=== PATIENT | female | born 1995 | race Caucasian/White ===

== ENCOUNTER → 2016-03-29 | Outpatient (CLI) | payer OTHER ==
[2016-03-29 14:49] LABS: BASO % 0.3 % (0.0-1.0); EOS # 0.1 K/mm3 (0.0-0.50); LARGE UNSTAINED CELL # 0.1 K/mm3 (0.0-0.4); LARGE UNSTAINED CELL % 0.7 % (0.0-4.0); LYMPH # 1.1 K/mm3 (1.5-6.5); LYMPH % 9.1 % (24.0-44.0); MEAN CORPUSCULAR HGB CONC 33.2 g/dl (32.0-36.5); MEAN CORPUSCULAR VOLUME 84.2 fl (80.0-96.0); MONO # 0.6 K/mm3 (0.0-0.8); MONO % 5.2 % (0.0-5.0); NEUTROPHILS # 9.3 K/mm3 (1.8-7.7); NEUTROPHILS % 83.8 % (36.0-66.0); PLATELET COUNT, AUTOMATED 219 k/mm3 (150-450); WHITE BLOOD COUNT 11.1 K/mm3 (4.0-10.0)
== END ==
LOC: M LAB 13:21
PROVIDERS: ATTEND Advanced Practice Midwife
DX: Z34.83 Encounter for supervision of other normal pregnancy, third trimester (principal)

== ENCOUNTER 2016-06-10 19:50 | Inpatient (IN) | payer OTHER ==
[~2016-06-10] VITALS: Ht 160 cm; Wt 84.0 kg
[2016-06-10] MEDS ORDERED: PRENTAB55 PO (19:55)
[2016-06-10 20:48] LABS: MEAN CORPUSCULAR HEMOGLOBIN 24.7 pg (27.0-33.0); MEAN CORPUSCULAR HGB CONC 32.6 g/dl (32.0-36.5); MEAN CORPUSCULAR VOLUME 75.9 fl (80.0-96.0); RED CELL DISTRIBUTION WIDTH 14.6 % (11.5-14.5); WHITE BLOOD COUNT 10.2 K/mm3 (4.0-10.0)
[2016-06-10 21:07] LABS: ALT/SGPT 11 U/L (12-78); AST/SGOT 11 U/L (15-37); BILIRUBIN,TOTAL 0.2 MG/DL (0.2-1.0); CREATININE FOR GFR 0.68 MG/DL (0.55-1.02); URIC ACID 6.2 MG/DL (2.6-6.0)
[2016-06-10] MEDS ORDERED: LABETALOL HCL 100 MG/20 ML VIAL IV ONE (21:15)
[2016-06-10] MEDS ORDERED: miSOPROStol 50 MCG 1/2 TAB (S0191) PO SCH (21:15)
--- NOTE | 2016-06-11 01:49 | HPE ---
DATE OF ADMISSION: 06/10/2016 REASON FOR ADMISSION: Preeclampsia. HISTORY OF PRESENT ILLNESS: This patient is a 20-year-old 1, para 0, who presents at 38 weeks 3 days estimated gestational age by last menstrual period confirmed by a first trimester ultrasound with complaints of elevated blood pressures at home, increased swelling and not feeling well. This is a patient who initiated care at [facility], had appropriate followup and transferred care at 28 weeks to a practice in [place]. She reports that on 05/16 that she actually was diagnosed with gestational hypertension. She was evaluated at [facility], had negative labs, but had elevated blood pressures and was discharged home when normotensive. On day of presentation, she reports not feeling well. She states that she has felt clammy with some difficulty breathing. She reports occasional headaches, but nothing that persists. Denies any visual change. She does report right upper quadrant discomfort that started late yesterday. She also denies vaginal bleeding, leakage of fluid or decreased movement. PAST MEDICAL HISTORY: None. PAST SURGICAL HISTORY: None. PAST OBSTETRICAL HISTORY: 1, para 0. MEDICATIONS: Include vitamins. ALLERGIES: She has no known drug allergies. SOCIAL HISTORY: She denies any alcohol, tobacco, or drug use during her . PHYSICAL EXAMINATION: VITAL SIGNS: Blood pressure 171/107, repeat 171/105, third blood pressure 193/112. She is afebrile. She has a category 1 heart rate tracing with some irregular contractions on tachometer. GENERAL APPEARANCE: Well appearing, no acute distress. LUNGS: Clear to auscultation bilaterally. ABDOMEN: Gravid. Estimated weight (EFW) 3400 grams. Some mild tenderness in the right upper quadrant. CERVICAL EXAM: Her cervix is fingertip dilation, 25% effaced, -3 station. LABORATORIES: Her blood type is B negative. Antibody screen is negative. Rubella is immune. RPR is nonreactive. Hepatitis surface antigen is negative. HIV is negative. Hepatitis C is nonreactive. She had a positive chlamydia, negative test of cure. She had a normal 1-hour Glucola. She is group B Streptococcus (GBS) negative. Her labs on the date of presentation, white count is 10, hemoglobin 10.7, hematocrit 32.8, platelets are 202. Chemistry is currently pending, as well as urine protein, creatinine. ASSESSMENT: 1. This patient is a 20-year-old 1 at 38 weeks 3 days estimated gestational age with preeclampsia showing severe features with severely elevated blood pressures. 2. Reassuring status. PLAN: 1. Admit to labor and delivery. CBC, RPR, type and screen. Preeclamptic panel. Protein/creatinine ratio. 2. Patient has been thoroughly counseled in regards to her diagnosis. I have discussed management options with her. I discussed antihypertensive therapy for blood pressure sustained at greater than 160 or diastolics of 110. I also discussed neural prophylaxis with magnesium sulfate. We discussed induction of labor with the above indication. I discussed medications, as well as procedures performed in labor and delivery. She has also been verbally consented for emergency surgery, blood products, anesthesia and has consented to admission. Will initiate her induction with 50 mcg of misoprostol.
--- NOTE | 2016-07-03 14:08 | DSES ---
DATE OF ADMISSION: 06/10/2016 DATE OF DISCHARGE: The patient was never discharged, she left against medical advice. ADMISSION DIAGNOSIS: Preeclampsia. HISTORY AND HOSPITALIZATION COURSE: This patient is a 20-year-old, 1, para 0 who presented at 38 weeks 2 days estimated gestational age by last menstrual period and confirmed by first trimester ultrasound with complaints of elevated blood pressure at home, as well as increased swelling and overall not feeling well. The patient initiated her care at [facility]. She had appropriate followup and transferred her care at 28 weeks to a practice in [place]. She reports that on 05/16/2016 that she was diagnosed with gestational hypertension. She was evaluated at [facility] and had negative laboratories, but her blood pressure remained elevated and she was discharged home eventually normotensive with plans for induction of labor. On the day of presentation, she reports not feeling well. She states that she was feeling clammy with some difficulty breathing, and she reports occasional headaches, but nothing that persists. Denied any visual changes. PHYSICAL EXAMINATION: Her blood pressure was markedly elevated at 170s over 100. Neurologically, she seems grossly intact. Cervix at this time was fingertip dilation, 25% effaced, -2 station. She was initially counseled in regard to her diagnosis with preeclampsia with severe features with elevated blood pressures. She initially accepted induction of labor, which was initially initiated with 50 mcg of misoprostol. Approximately two hours after initiation of induction of labor, the patient declined any further intervention. She was recounseled in regard to her diagnosis with my recommendations for induction of labor, but at that time declined any further intervention and signed herself out against medical advice.
== END 2016-06-10 23:58 | disposition home or self-care (01) | DRG 566 ==
LOC: M LDO 19:50 → M LDI 20:42
PROVIDERS: ADMIT Obstetrics & Gynecology; ATTEND Obstetrics & Gynecology
DX: O14.13 Severe pre-eclampsia, third trimester (principal)

== ENCOUNTER 2016-06-11 16:31 | Outpatient (CLI) | payer OTHER ==
[~2016-06-11] VITALS: Ht 160 cm; Wt 82.0 kg
[2016-06-11] VITALS (14 sets, daily range): BP systolic 122–158; BP diastolic 70–109
[~2016-06-11 16:31] MED LIST: PRENTAB55 PO
[2016-06-11 17:36] LABS: METHADONE URINE NEGATIVE (NEGATIVE)
--- NOTE | 2016-06-12 00:29 | IPN ---
DATE OF SERVICE: 06/11/2016 REASON FOR VISIT: Patient desired induction of labor. HISTORY OF PRESENT ILLNESS: This patient is a 20-year-old 1 who presents at 38 weeks desiring induction of labor. This is a patient who has been followed in [place] with a provider who works out of [facility]. She initially presented yesterday to labor and delivery at [facility] at which time she was noted to have severe raised blood pressures. Recommendation was made to manage her hypertension with discussion for induction of labor. The patient initially accepted admission with plan of care and 2 hours into her management she signed herself out AGAINST MEDICAL ADVICE. She then presented to [facility] at which time her provider discussed their recommendations for induction of labor for gestational hypertension/preeclampsia at which time she signed herself out again AGAINST MEDICAL ADVICE and has now presented to labor and delivery requesting induction of labor. Currently, the patient denies any visual changes, abdominal pain, or headaches. She reports active movement. Also denies any vaginal bleeding, leakage of fluid or contractions. This patient was monitored for several hours and was normotensive with rare elevated blood pressures. She had a category 1 heart rate tracing throughout this observation and remained stable. Patient was then discharged home with instructions to followup with her primary staff nuclear medicine technologist and recommend following their plan of care at this time. She was given strict precautions for preeclampsia, as well as labor. She was also instructed in kick counts. JOANNE
== END 2016-06-11 21:10 | disposition home or self-care (01) ==
LOC: M LDO 16:31
PROVIDERS: ATTEND Obstetrics & Gynecology
DX: Z34.83 Encounter for supervision of other normal pregnancy, third trimester (principal)

== ENCOUNTER 2017-03-26 19:20 | Emergency (ER) | payer OTHER ==
[2017-03-26 21:31] LABS: BASO % 0.3 % (0.0-1.0); EOS # 0.1 10^3/uL (0.0-0.50); HEMATOCRIT 43.7 % (36.0-47.0); HEMOGLOBIN 14.3 g/dl (12.0-16.0); IMMATURE GRANULOCYTE % 0.2 % (0-3.0); LYMPH # 1.4 10^3/uL (1.5-6.5); LYMPH % 15.7 % (24.0-44.0); MEAN CORPUSCULAR HGB CONC 32.7 g/dl (32.0-36.5); MEAN CORPUSCULAR VOLUME 76.4 fl (80.0-96.0); MONO # 0.5 10^3/uL (0.0-0.8); MONO % 5.9 % (0.0-5.0); NEUTROPHILS # 6.7 10^3/uL (1.8-7.7); NEUTROPHILS % 76.9 % (36.0-66.0); PLATELET COUNT, AUTOMATED 260 10^3/uL (150-450); RED BLOOD COUNT 5.72 10^6/uL (4.00-5.40); RED CELL DISTRIBUTION WIDTH 13.2 % (11.5-14.5); WHITE BLOOD COUNT 8.8 10^3/uL (4.0-10.0)
[2017-03-26 22:00] LABS: ANION GAP 7 MEQ/L (8-16); BLOOD UREA NITROGEN 14 MG/DL (7-18); CALCIUM LEVEL 9.3 MG/DL (8.5-10.1); CARBON DIOXIDE LEVEL 29 MEQ/L (21-32); CHLORIDE LEVEL 105 MEQ/L (98-107); CPK CREATINE PHOSPHOKINASE 154 U/L (26-192); CREATININE FOR GFR 0.74 MG/DL (0.55-1.30); GLOMERULAR FILTRATION RATE > 60.0 (>60); GLUCOSE, FASTING 93 MG/DL (70-100); MAGNESIUM LEVEL 2.3 MG/DL (1.8-2.4); SODIUM LEVEL 141 MEQ/L (136-145); TROPONIN I < 0.02 NG/ML (< 0.10)
[2017-03-26 22:05] LABS: CK-MB VALUE MASS 1.4 NG/ML (0.0-3.6)
[2017-03-26 22:10] LABS: D-DIMER QUANT < 270.0 ng/ml (<500)
== END 2017-03-26 22:42 | disposition home or self-care (01) ==
LOC: M ED 19:20
DX: R07.89 Other chest pain (principal); R00.2 Palpitations; R06.02 Shortness of breath; R11.0 Nausea; E03.9 Hypothyroidism, unspecified; F41.9 Anxiety disorder, unspecified
CPT/HCPCS: 71046

== ENCOUNTER 2018-08-12 10:20 | Emergency (ER) | payer OTHER, SELFPAY ==
[~2018-08-12] VITALS: Ht 157.5 cm; Wt 61.3 kg
[~2018-08-12 10:20] MED LIST changes: +SYNT88TA2 PO
[2018-08-12 10:21] VITALS: BP 153/95
[2018-08-12 11:03] LABS: BASO % 0.3 % (0.0-1.0); EOS % 0.6 % (0.0-3.0); HEMATOCRIT 43.4 % (36.0-47.0); HEMOGLOBIN 14.6 g/dl (12.0-15.5); LYMPH # 0.7 10^3/uL (1.5-6.5); LYMPH % 21.3 % (24.0-44.0); MEAN CORPUSCULAR HEMOGLOBIN 27.7 pg (27.0-33.0); MEAN CORPUSCULAR HGB CONC 33.6 g/dl (32.0-36.5); MEAN CORPUSCULAR VOLUME 82.2 fl (80.0-96.0); MONO # 0.4 10^3/uL (0.0-0.8); MONO % 12.3 % (0.0-5.0); NEUTROPHILS # 2.2 10^3/uL (1.8-7.7); NEUTROPHILS % 65.2 % (36.0-66.0); PLATELET COUNT, AUTOMATED 149 10^3/uL (150-450); RED BLOOD COUNT 5.28 10^6/uL (4.00-5.40); WHITE BLOOD COUNT 3.3 10^3/uL (4.0-10.0)
[2018-08-12 11:39] LABS: ALBUMIN 3.6 GM/DL (3.2-5.2); ALT/SGPT 15 U/L (12-78); BILIRUBIN,DIRECT 0.2 MG/DL (0.0-0.2); BILIRUBIN,TOTAL 0.6 MG/DL (0.2-1.0); BLOOD UREA NITROGEN 10 MG/DL (7-18); CARBON DIOXIDE LEVEL 29 MEQ/L (21-32); CHLORIDE LEVEL 103 MEQ/L (98-107); CREATININE FOR GFR 0.75 MG/DL (0.55-1.30); GLOMERULAR FILTRATION RATE > 60.0 (>60); GLUCOSE, FASTING 89 MG/DL (70-100); LIPASE 104 U/L (73-393); POTASSIUM SERUM 3.8 MEQ/L (3.5-5.1); SODIUM LEVEL 137 MEQ/L (136-145); TOTAL PROTEIN 7.3 GM/DL (6.4-8.2)
[2018-08-12 12:45] LABS: CHLAMYDIA DNA AMPLIFICATION NEGATIVE (NEGATIVE); GC DNA AMPLIFICATION NEGATIVE (NEGATIVE)
--- NOTE | 2018-08-12 13:25 | REP ---
PELVIC ULTRASOUND: Real-time sonographic evaluation of the pelvis is performed utilizing transabdominal and endovaginal technique. Bladder measures 3.3 x 1.3 x 4.1 cm. Uterus measures 8.4 x 3.9 x 6.3 cm. Endometrial thickness is 11 mm. There is no endometrial fluid collection. Right ovary measures 3.9 x 2.6 x 3.6 cm and left ovary 3.6 x 2.5 x 3.2 cm. A cystic structure along the margin of the right ovary measures 1.8 x 1.5 x 1.9 cm. There is no evidence of ovarian torsion, blood flow seen in each ovary with duplex Doppler evaluation, RI right ovary 0.45 and left ovary 0.55. There is moderate free fluid. IMPRESSION: There is a small cystic structure along the margin of the right ovary 1.9 cm in maximum diameter. No other evidence of adnexal mass. Moderate free fluid. No torsion. Electronically Signed by Gutierrez Campos MD 08/13/2018 09:56 A
[2018-08-12] MEDS ORDERED: VALA1TAB2 PO (13:30)
[2018-08-12] MEDS ORDERED: CIPR-249 PO (13:30)
[2018-08-12 13:44] LABS: HEPATITIS B SURFACE ANTIBODY POSITIVE (POSITIVE)
[2018-08-12 13:55] LABS: HEPATITIS B SURFACE ANTIGEN NEGATIVE (NEGATIVE)
[2018-08-12 14:23] LABS: HEPATITIS C VIRUS ABY INDEX 0.1 INDEX (<0.8)
[2018-08-12 14:24] LABS: HIV 1&2 SCREEN CENTAUR NEGATIVE (NEGATIVE)
[2018-08-14] MEDS ORDERED: KETO10TAB PO (01:29)
[2018-08-14] MEDS ORDERED: KEFL500C17 PO (01:29)
== END 2018-08-12 13:50 | disposition home or self-care (01) ==
LOC: M ED 11:38
DX: N90.89 Other specified noninflammatory disorders of vulva and perineum (principal); N39.0 Urinary tract infection, site not specified; E03.9 Hypothyroidism, unspecified; F41.9 Anxiety disorder, unspecified; Z77.098 Contact with and (suspected) exposure to other hazardous, chiefly nonmedicinal, chemicals; Z79.899 Other long term (current) drug therapy

== ENCOUNTER → 2019-01-31 | Outpatient (CLI) | payer OTHER ==
[~2019-01-31] MED LIST changes: +CIPR-249 PO; +KEFL500C17 PO; +KETO10TAB PO; +VALA1TAB64 PO
[2019-01-31 13:37] LABS: BASO % 0.4 % (0.0-1.0); EOS # 0.1 10^3/uL (0.0-0.5); EOS % 0.8 % (0.0-3.0); HEMATOCRIT 41.9 % (36.0-47.0); HEMOGLOBIN 13.8 g/dl (12.0-15.5); LYMPH # 1.2 10^3/uL (1.5-5.0); LYMPH % 16.9 % (24.0-44.0); MEAN CORPUSCULAR HEMOGLOBIN 27.5 pg (27.0-33.0); MEAN CORPUSCULAR HGB CONC 32.9 g/dl (32.0-36.5); MEAN CORPUSCULAR VOLUME 83.6 fl (80.0-96.0); MONO # 0.4 10^3/uL (0.0-0.8); MONO % 5.6 % (0.0-5.0); NEUTROPHILS # 5.6 10^3/uL (1.5-8.5); NEUTROPHILS % 75.9 % (36.0-66.0); PLATELET COUNT, AUTOMATED 211 10^3/uL (150-450); RED BLOOD COUNT 5.01 10^6/uL (4.00-5.40); WHITE BLOOD COUNT 7.3 10^3/uL (4.0-10.0)
[2019-01-31 13:55] LABS: CREATININE,RANDOM URINE 95.6 MG/DL; TOTAL PROTEIN,RANDOM URINE 7.9 MG/DL (0.0-12.0)
[2019-01-31 13:59] LABS: ALT/SGPT 12 U/L (12-78); BILIRUBIN,TOTAL 0.6 MG/DL (0.2-1.0); CREATININE FOR GFR 0.64 MG/DL (0.55-1.30); GLOMERULAR FILTRATION RATE > 60.0 (>60); LDH LACTATE DEHYDROGENASE 146 U/L (84-246); URIC ACID 5.2 MG/DL (2.6-6.0)
[2019-01-31 14:19] LABS: RUBELLA IgG QUALITATIVE IMMUNE (IMMUNE)
[2019-01-31 14:48] LABS: HEPATITIS C VIRUS ABY INDEX 0.2 INDEX (<0.8)
[2019-01-31 14:49] LABS: HIV 1&2 SCREEN CENTAUR NEGATIVE (NEGATIVE)
[2019-01-31 15:08] LABS: CHLAMYDIA DNA AMPLIFICATION NEGATIVE (NEGATIVE); GC DNA AMPLIFICATION NEGATIVE (NEGATIVE)
== END ==
LOC: M PLALAB 10:31
PROVIDERS: ATTEND Advanced Practice Midwife
DX: Z34.91 Encounter for supervision of normal pregnancy, unspecified, first trimester (principal)

== ENCOUNTER → 2019-03-26 | Outpatient (CLI) | payer MEDICAID, OTHER, SELFPAY ==
[~2019-03-26] MED LIST changes: +VALA1TAB5 PO; -VALA1TAB64 PO
--- NOTE | 2019-03-26 15:35 | REP ---
Obstetric sonography: History: Supervision of . For anatomy. Findings: Scanning through the gravid uterus demonstrates a viable single intrauterine gestation in a cephalic lie. motion is observed and heart rate is recorded at 114 beats per minute. An anterior grade 1 placenta is seen without evidence of previa or abruption. Amniotic fluid is subjectively normal. Closed cervical length is 3.1 cm. No anomaly is seen. The following anatomic structures are identified and felt to be sonographically unremarkable: cranium, choroid plexus, cavum, cerebellum and posterior fossa, nuchal fold, face and profile, four-chamber heart with left and right ventricular outflow tract views, diaphragm, left-sided stomach, abdominal wall cord insertion, three-vessel cord, kidneys and bladder, spine, upper and lower extremities. Biometry chart: BPD 4.1 cm = 18 weeks 3 days HC 15.4 cm = 18 weeks 3 days AC 12.6 cm = 18 weeks 1 day FL 2.6 cm = 17 weeks 6 days HL 2.8 cm = 19 weeks 0 days HC/AC ratio normal 1.22. Cephalic index normal 0.73. Estimated weight 224 grams, 0 pounds 7 ounces, 46th percentile for 18 weeks 1 day. Impression: Viable single intrauterine gestation at 18 weeks 1 day by today's composite sonographic criteria. JOCELYN by today's sonography August 26, 2019.
== END ==
LOC: M WHC 13:37
PROVIDERS: ATTEND Advanced Practice Midwife
DX: Z34.82 Encounter for supervision of other normal pregnancy, second trimester (principal); Z36.89 Encounter for other specified antenatal screening; Z3A.18 18 weeks gestation of pregnancy

== ENCOUNTER → 2019-05-30 | Outpatient (REF) | payer OTHER, MEDICAID ==
[2019-05-30 13:40] LABS: HEMATOCRIT 37.9 % (36.0-47.0); HEMOGLOBIN 12.8 g/dl (12.0-15.5); MEAN CORPUSCULAR HEMOGLOBIN 28.6 pg (27.0-33.0); MEAN CORPUSCULAR HGB CONC 33.8 g/dl (32.0-36.5); MEAN CORPUSCULAR VOLUME 84.6 fl (80.0-96.0); PLATELET COUNT, AUTOMATED 207 10^3/uL (150-450); RED BLOOD COUNT 4.48 10^6/uL (4.00-5.40); WHITE BLOOD COUNT 10.7 10^3/uL (4.0-10.0)
== END ==
LOC: M PLALAB 11:08
PROVIDERS: ATTEND Advanced Practice Midwife
DX: Z36.89 Encounter for other specified antenatal screening (principal); O09.292 Supervision of pregnancy with other poor reproductive or obstetric history, second trimester; Z3A.00 Weeks of gestation of pregnancy not specified
CPT/HCPCS: 36415; 82950; 85027; 86850; 86900; 86901; J2790

== ENCOUNTER → 2019-07-11 | Outpatient (CLI) | payer OTHER ==
--- NOTE | 2019-07-11 17:11 | REP ---
Clinical: Growth evaluation. Comparison: 03/26/2019 . Findings: Examination demonstrates a single live intrauterine in breech presentation. motion is identified by technologist. Placenta is noted anterior and grade I I without evidence for placenta previa or abruption. Amniotic fluid volume is normal. Cervix measures 3.6 cm in length and appears closed. No evidence for nuchal cord. Gestational age by LMP 33 weeks 3 days with JOCELYN 08/26/2019 . Gestational age by current measurements 33 weeks 5 days with JOCELYN 08/24/2019 . FHR equals 142 beats per minute. BPD 8.5 cm 34 weeks 2 days HC 32.1 cm 36 weeks 1 day AC 30.6 cm 34 weeks 4 days FL 6.3 cm 32 weeks 3 days HL 5.4 cm 31 weeks 4 days HC/AC ratio 1.05 Estimated weight 2357 grams ( 59th percentile). Amniotic fluid index: 21.7 cm Impression: Single live intrauterine in breech presentation demonstrating appropriate interval growth. No gross abnormalities are identified.
== END ==
LOC: M WHC 13:02
PROVIDERS: ATTEND Advanced Practice Midwife
DX: Z34.92 Encounter for supervision of normal pregnancy, unspecified, second trimester (principal)

== ENCOUNTER → 2019-07-25 | Outpatient (REF) | payer OTHER, MEDICAID ==
[~2019-07-25] MED LIST changes: +ASPI81TA85 PO; +PRENTAB9 PO; +TUMS500C PO
== END ==
LOC: M SFHCWAGY 16:44
PROVIDERS: ATTEND Advanced Practice Midwife
DX: O13.3 Gestational [pregnancy-induced] hypertension without significant proteinuria, third trimester (principal)

== ENCOUNTER → 2019-08-01 | Outpatient (CLI) | payer OTHER ==
--- NOTE | 2019-08-01 17:22 | REP ---
OBSTETRIC SONOGRAPHY: HISTORY: Supervision of . growth study for GAYATHRI. Gestational diabetes. FINDINGS: Scanning through the gravid uterus demonstrates a single living intrauterine gestation in a cephalic lie. motion is observed, and heart rate is recorded at 135 beats per minute. The placenta is anterior, grade 2 without evidence of previa or abruption. Amniotic fluid is subjectively normal. Closed cervical length is 3.1 cm measured transabdominally. No extrauterine abnormalities observed. There has been appropriate interval growth. BIOMETRY CHART: BPD 9.1 cm = 36 weeks 5 days Head circumference 33.7 cm = 38 weeks 4 days Abdominal circumference 34.3 cm = 38 weeks 1 day Femur length 7.0 cm = 35 weeks 5 days Humeral length 6.0 cm = 34 weeks 5 days HC/AC ratio normal 1.0, cephalic index normal 0.75, estimated weight 3214 grams, 7 pounds 1 ounce, 66 percentile for 36 weeks 5 days. GAYATHRI normal 20.0 cm. IMPRESSION: Viable single intrauterine gestation at 36 weeks 5 days by today's composite criteria. Expected gestational age estimate based on prior sonography is 36 weeks 3 days. JOCELYN by prior sonography August 26, 2019. There is appropriate interval growth.
== END ==
LOC: M WHC 13:02
PROVIDERS: ATTEND Advanced Practice Midwife
DX: O13.3 Gestational [pregnancy-induced] hypertension without significant proteinuria, third trimester (principal); Z3A.36 36 weeks gestation of pregnancy

== ENCOUNTER 2019-08-04 09:46 | Inpatient (IN) | payer OTHER ==
[~2019-08-04] VITALS: Ht 157.5 cm; Wt 89.0 kg
[2019-08-04] VITALS (15 sets, daily range): BP systolic 110–141; BP diastolic 66–86
[~2019-08-04 09:46] MED LIST changes: -ASPI81TA85 PO; -PRENTAB9 PO; -TUMS500C PO
[2019-08-04] MEDS ORDERED: PRENTAB9 PO (10:22)
[2019-08-04] MEDS ORDERED: ASPI81TA85 PO (10:22)
[2019-08-04] MEDS ORDERED: TUMS500C PO (10:23)
[2019-08-04] MEDS ORDERED: LACTATED RINGER'S 1000 ML IV STA (11:03)
--- NOTE | 2019-08-04 12:13 | HPEPDOC ---
Obstetrical History & Physical General Date of Admission Aug 04, 2019 at 09:46 Primary Care Physician: HUY MCCARTNEY CNM History of Present Illness Patient is a 23-year-old female who is a at 37 week gestation with an JOCELYN of 08/24/19 based off of her LMP and consistent with her first trimester ultrasound. her has been complicated by GHTN, which she was diagnosed with at 32 weeks. She has a history of preeclampsia with severe features. She currently denies any preeclamptic signs or symptoms. Reports active movement and occasional contractions. Denies vaginal bleeding or leaking of fluid. Chief Complaint: Gestational Hypertension Information Provided By: Patient Age: 23 : 2 Term: 1 Pre-term: 0 Abortions: 0 Livin Care Care: Good Care Dating Final EDC: Aug 24, 2019 Final EDC by: LMP LMP: Nov 17, 2018 EGA at Admission: 37 Antepartum Course Diagnos(e)s GHTN Height (inches): 23 Pre- weight (lbs.): 154 Admission Weight (lbs.): 191 Change in Weight (lbs.): 37 Past Medical History Past Obstetrical History : Past Obstetrical History: Primgravida Date of Delivery: June 15, 2016 Gestation: 39 Type of Delivery: Spontaneous Vaginal Del. Sex of : Female Complications: Yes (preeclampsia with severe features: vacuum assisted with episiotomy) [employer] History: History of STD (chlamydia) Past Medical History Surgical History: Denies/None Family History Significant Family History: Diabetes, Other (RA) Social History Marital Status: Single Family situation: Spouse/partner home Psychosocial History: Anxiety * Smoker: non-smoker Alcohol: Denies Drugs: denies Abuse Violence Screening Have you been sexually assault: No Allergies Coded Allergies: No Known Allergies (Unverified , 08/12/18) Medications Scheduled Aspirin (Aspir 81) 81 Mg Tablet.dr, 1 TAB PO DAILY for pain Calcium Carbonate (Tums) 200 Mg Tab.chew, 2 TAB PO PRN No.137/Iron/Folic Acd ( Vitamin Tablet) 1 Each Tablet, 1 TAB PO DAILY Physical Examination Physical Examination GENERAL: Alert and oriented times three. BREAST: . ABDOMEN: Gravid and non-tender to touch. FETUS: Is vertex (VTX) by sterile vaginal examination (SVE), fetus is vertex (VTX) by Travis. HEART RATE: Regular rate and rhythm. LUNGS: Clear to auscultation (CTA). PERINEUM: inspection of cervix, perineum, and external genitalia show no lesions. EXTREMITIES: Generalized edema bilateral legs and feet. No clonus. Deep tendon reflexes (DTRs) + 2. Vital Signs/I&O Vital Signs Date Time Temp Pulse Resp B/P (MAP) Pulse Ox O2 Delivery O2 Flow Rate FiO2 08/04/19 10:50 96 18 138/84 (102) 08/04/19 10:18 99.7 Laboratory Data 24H LABS Laboratory Tests 2 08/04/19 10:10: Serology Scanned Report Hepatitis B Testing Item Value Date Time Creatinine 0.60 MG/DL 08/04/19 1206 Glomerular Filtration Rate > 60.0 08/04/19 1206 Uric Acid 5.6 MG/DL 08/04/19 1206 Total Bilirubin 0.2 MG/DL 08/04/19 1206 Aspartate Amino Transf (AST/SGOT) 23 U/L 08/04/19 1206 Alanine Aminotransferase (ALT/SGPT) 14 U/L 08/04/19 1206 Lactate Dehydrogenase 280 U/L H 08/04/19 1206 CBC/BMP Item Value Date Time White Blood Count 10.3 10^3/uL H 08/04/19 1206 Red Blood Count 4.73 10^6/uL 08/04/19 1206 Hemoglobin 12.4 g/dl 08/04/19 1206 Hematocrit 38.2 % 08/04/19 1206 Mean Corpuscular Volume 80.8 fl 08/04/19 1206 Mean Corpuscular Hemoglobin 26.2 pg L 08/04/19 1206 Mean Corpuscular Hemoglobin Concent 32.5 g/dl 08/04/19 1206 Red Cell Distribution Width 13.2 % 08/04/19 1206 Platelet Count 207 10^3/uL 08/04/19 1206 Urine Culture: No Growth Pertinent Laboratoy Data Blood Type: B- RBC Antibody Screen: Negative HIV: Negative Hepatitis B: Negative Hepatitis C: Negative Rapid Plasma Reagin: Nonreactive Rubella: Immune Chlamydia/Gonorrhea: Negative Group B Streptococcus: Negative Glucose Tolerance Test: 97 Anatomy Ultrasound Ultrasound Date: Aug 04, 2019 Placenta Location: Anterior Normal Anatomy: Yes (breech with GAYATHRI of 21.7 cm) Placenta Previa: No Estimated Weight (grams): 2351 Other Ultrasounds 07/25/19: Vertex by sono Vaginal Examination Dilation: 1cm Effacement: 50% Station: -3 Cervical Consistency: Soft Cervical Position: Middle Presentation: Cephalic presentation Position: Vertex (occiput) Assessment Heart Rate (FHR): 135 Variability: Moderate Accelerations: Positive Decelerations: None Tocometer Contractions: Yes Frequency: irregular Multi-drug resistant Organism: MRSA (PCR obtained today and is negative.) Assessment/Plan Assessment IUP at 37 weeks gestation GHTN Category I FHR tracing GBS negative Plan Admit to L&D. Dr. Mcrae aware of patient being in department and collaborated on plan of care. OOB ad ivon Diet: regular now then switch to clears when IV Pitocin is ordered. Group B Streptococcus (GBS) negative. Labs and intravenous (IV) per unit protocol. Counseled on Cytotec and Pitocin for induction of labor. Cytotec ordered first and to be started. HSV IgG and IgM ordered due to patient not taking any prophylactic treatment for HSV as patient reports she wasn't aware of having a positive viral culture that was done August 2018 in the ED. Inspection appears negative for vaginal, cervical, perineal lesions. Anesthesia consult per patient's request for epidural. Lactated Ringers (LR): Bolus 500 mL prior to epidural, then at 125 mL/hr. Anticipate cervical ripening. C-S as appropriate. HUY MCCARTNEY CNM Aug 04, 2019 12:13
[2019-08-04] MEDS ORDERED: miSOPROStol 50 MCG 1/2 TAB (S0191) PO ONE (12:15)
[2019-08-04 12:29] LABS: HEMATOCRIT 38.2 % (36.0-47.0); HEMOGLOBIN 12.4 g/dl (12.0-15.5); MEAN CORPUSCULAR HEMOGLOBIN 26.2 pg (27.0-33.0); MEAN CORPUSCULAR HGB CONC 32.5 g/dl (32.0-36.5); MEAN CORPUSCULAR VOLUME 80.8 fl (80.0-96.0); PLATELET COUNT, AUTOMATED 207 10^3/uL (150-450); RED BLOOD COUNT 4.73 10^6/uL (4.00-5.40); WHITE BLOOD COUNT 10.3 10^3/uL (4.0-10.0)
[2019-08-04 12:55] LABS: ALT/SGPT 14 U/L (12-78); BILIRUBIN,TOTAL 0.2 MG/DL (0.2-1.0); GLOMERULAR FILTRATION RATE > 60.0 (>60); LDH LACTATE DEHYDROGENASE 280 U/L (84-246); URIC ACID 5.6 MG/DL (2.6-6.0)
[2019-08-04] MEDS ORDERED: miSOPROStol 50 MCG 1/2 TAB (S0191) PO SCH ×3 (17:00→22:00)
[2019-08-05] VITALS (57 sets, daily range): BP systolic 102–147; BP diastolic 56–86
[2019-08-05] MEDS ORDERED: OXYTOCIN DRIP 30 UNITS in IV 1 EA IV SCH ×2 (00:30→22:14)
[2019-08-05] MEDS: LR 1,000 ML IV SCH ×3 (01:53→19:00)
--- NOTE | 2019-08-05 08:10 | IPNPDOC ---
Obstetrical Progress Note Date of Service Aug 05, 2019 Subjective Patient reports she is feeling some of her contractions. Objective Vital Signs Date Time Temp Pulse Resp B/P (MAP) Pulse Ox O2 Delivery O2 Flow Rate FiO2 08/05/19 07:29 98.3 93 16 117/79 (92) Assessment Heart Rate (FHR): 130 Variability: Moderate Accelerations: Positive Decelerations: None Heart Rate Tracing: Category I Tocometer Contractions: Yes Frequency: regular Sterile Vaginal Examination Dilation: 3 cm Effacement (%): other (75%) Station: -3 Cervical Consistency: Soft Cervical Position: Anterior Postion/Presentation: Cephalic presentation Assessment and Plan EGA at Admission: 37 Weeks & Days 37.1 weeks today Status: Reassuring Group B Streptococcus: Negative Additional Comments AROM to a large amount of clear fluid. IV Pitocin is at 10 mu/min. HUY MCCARTNEY CNM Aug 05, 2019 08:10
[2019-08-05] MEDS ORDERED: FENTANYL 2MCG/ML ROPIVACAINE 0.2% IN 0.9% NACL 100ML IVBAG As Ordered ONE (11:19)
[2019-08-05] MEDS ORDERED: EPIDURAL COMMENT XX SCH (12:15)
[2019-08-05] MEDS ORDERED: ONDANSETRON 4MG/2ML VIAL IV PRN (12:15)
[2019-08-05] MEDS ORDERED: EPIDURAL/PCA KEYS XX PRN (12:15)
[2019-08-05] MEDS ORDERED: ePHEDrine SULFATE 25 MG/5 ML(5MG/ML) SYRINGE IV PRN (12:15)
[2019-08-05] MEDS ORDERED: LACTATED RINGER'S 1000 ML IV PRN (12:15)
[2019-08-05] MEDS ORDERED: diphenhydrAMINE 50MG/ML VIAL (J1200) IV PRN (12:15)
[2019-08-05] MEDS ORDERED: NALOXONE INJ 0.4MG/1ML VIAL (J2310 PER 1MG) IV PRN (12:15)
[2019-08-05] MEDS ORDERED: REFRIGERATOR IV KEYS XX PRN (12:15)
[2019-08-05] MEDS: FENTANYL/ROPIVACAINE/NACL BAG 100 ML EPIDURAL SCH ×2 (12:52→22:15)
--- NOTE | 2019-08-05 20:02 | DNPDOC ---
[facility] Delivery Note Delivery Note DATE OF DELIVERY: 08/05/2019 TIME OF : 1913 GENDER:, Male. APGARS: 8 and 9. WEIGHT: 2900 grams or 6 pounds 6 ounces. LACERATIONS:. None ANESTHESIA: Epidural. ESTIMATED BLOOD LOSS: 300ml COUNTS: 5 laparotomy sponges accounted for prior to after delivery. DELIVERY NOTE: 08/05/2019 1914, Mrs. Scherer a 23-year-old 2 now para 2, had a spontaneous vaginal delivery of viable male , Apgars, 8 and 9. Weight was 2900 g or 6 lbs. 6 oz. Head was delivered occiput anterior (OA). Nuchal cord was manually reduced followed by delivery of the shoulders and corpus. was handed to mom with a good cry. Cord was clamped times two and was cut by the father of baby under my direction. Placenta was then drained and delivered grossly intact. A premixed bag of 500 mL of normal saline with 30 units of Pitocin was then bolused along with uterine massage until the uterus was firm. On inspection, cervix, vagina, perineum was grossly intact and hemostatic. Mom and baby recovering in stable condition. The couples decided to remain in son CHILO Alvarez MD. Aug 05, 2019 20:02
[2019-08-05] MEDS ORDERED: MEASLES,MUMPS,RUBELLA VACCINE INJ (MMR-II) (90707) SC SCH (21:45)
[2019-08-05] MEDS ORDERED: ACETAMINOPHEN TAB 650MG DOSE (2X325MG) PO PRN (21:45)
[2019-08-05] MEDS ORDERED: ACETAMINOPHEN 500 MG TAB PO PRN (21:45)
[2019-08-05] MEDS ORDERED: DOCUSATE SODIUM 100 MG CAP PO PRN (21:45)
[2019-08-05] MEDS ORDERED: METHYLERGONOVINE MALEATE 0.2 MG TAB PO PRN (21:45)
[2019-08-05] MEDS ORDERED: DIBUCAINE 1% OINTMENT 30GM TOP PRN (21:45)
[2019-08-05] MEDS ORDERED: RHOGAM 300 MCG (1500 IU) INJ (J2790) IM SCH (21:45)
[2019-08-05] MEDS ORDERED: IBUPROFEN 600MG TAB PO PRN (21:45)
[2019-08-06] MEDS: LR 1,000 ML IV SCH (00:18)
[2019-08-06 06:00] VITALS: BP 114/62
--- NOTE | 2019-08-06 07:46 | IPNPDOC ---
Progress Note Date of Service: Aug 06, 2019 Day#: 1 Progress Note SUBJECT: Doing well without complaints. Ambulating, voiding and pain is well-co ntrolled. Reports minimal lochia. +breast feeding OBJECTIVE: VITAL SIGNS: Within normal limits, afebrile. Alert and oriented times three. Abdomen: Fundus firm at U-2. Soft, NTTP. Ext: neg calf tenderness. ASSESSMENT: day #1 status post normal spontaneous vaginal delivery. Recovering in stable condition. PLAN: 1. Continue routine care 2. Discharge plans for tomorrow VS, I&O, 24H, Fishbone Vital Signs/I&O Vital Signs Date Time Temp Pulse Resp B/P (MAP) Pulse Ox O2 Delivery O2 Flow Rate FiO2 08/06/19 06:00 97.7 83 18 114/62 (79) I&O- Last 24 Hours up to 6 AM 08/06/19 06:00 Intake Total 5226 ml Output Total 2525 ml Balance 2701 ml CHILO ALCANTAR MD. Aug 06, 2019 07:46
[2019-08-06] MEDS: PRENATAL VITAMINS CHEWABLE TABLET PO SCH (09:13)
[2019-08-06] MEDS: IBUPROFEN 800 MG TAB PO PRN ×2 (10:59→21:46)
[2019-08-06 18:25] VITALS: BP 126/77
[2019-08-07 06:03] VITALS: BP 108/57
[2019-08-07] MEDS: PRENATAL VITAMINS CHEWABLE TABLET PO SCH (08:43)
[2019-08-07 14:08] LABS: HSV TYPE I IgG SPECIFIC <0.91 index (0.00-0.90); HSV TYPE I IgM AB <1:10 titer (<1:10); HSV TYPE II IgM ABY <1:10 titer (<1:10)
== END 2019-08-07 18:32 | disposition home or self-care (01) | DRG 560 ==
LOC: M LDI 09:46 → M OBS 08-05 21:50
PROVIDERS: ADMIT Advanced Practice Midwife; ATTEND Advanced Practice Midwife
PROC: 10E0XZZ Delivery of Products of Conception, External Approach (ICD-10-PCS; principal; 2019-08-05)
DX: O13.4 Gestational [pregnancy-induced] hypertension without significant proteinuria, complicating childbirth (principal); Z37.0 Single live birth; Z3A.37 37 weeks gestation of pregnancy

== ENCOUNTER → 2019-12-22 | Outpatient (REF) | payer OTHER, MEDICAID ==
[~2019-12-22] MED LIST changes: +ASPI81TA86 PO; +PRENTAB9 PO; +TUMS500C PO
== END ==
LOC: M LAB REF 21:11
PROVIDERS: ATTEND Physician Assistant Medical
DX: J02.9 Acute pharyngitis, unspecified (principal)

== ENCOUNTER → 2020-03-16 | Outpatient (REF) | payer OTHER | LOC: M LAB REF 16:30 | PROVIDERS: ATTEND Physician Assistant Medical | DX: Z20.828 Contact with and (suspected) exposure to other viral communicable diseases (principal) ==

== ENCOUNTER → 2023-11-28 | Outpatient (CLI) | payer OTHER ==
[2023-11-28 10:53] LABS: HEMATOCRIT 39.8 % (36.0-47.0); HEMOGLOBIN 13.1 g/dl (12.0-15.5); MEAN CORPUSCULAR HEMOGLOBIN 26.8 pg (27.0-33.0); MEAN CORPUSCULAR HGB CONC 32.9 g/dl (32.0-36.5); MEAN CORPUSCULAR VOLUME 81.4 fl (80.0-96.0); PLATELET COUNT, AUTOMATED 198 10^3/uL (150-450); RED BLOOD COUNT 4.89 10^6/uL (4.00-5.40); WHITE BLOOD COUNT 8.5 10^3/uL (4.0-10.0)
[2023-11-28 11:48] LABS: LDH LACTATE DEHYDROGENASE 159 U/L (120-246)
[2023-11-28 11:49] LABS: ALT/SGPT < 9 U/L (7.0-40); AST/SGOT < 8 U/L (<34); BILIRUBIN,TOTAL 0.4 MG/DL (0.3-1.2); CREATININE FOR GFR 0.63 MG/DL (0.55-1.30); GLOMERULAR FILTRATION RATE > 60.0 (>60)
[2023-11-28 11:58] LABS: HIV 1&2 SCREEN NEGATIVE (NEGATIVE)
[2023-11-28 12:05] LABS: HEPATITIS C VIRUS ABY INDEX 0.02 INDEX (<0.8)
== END ==
LOC: M PLALAB 08:37
PROVIDERS: ATTEND Advanced Practice Midwife
DX: Z34.81 Encounter for supervision of other normal pregnancy, first trimester (principal); Z3A.00 Weeks of gestation of pregnancy not specified

== ENCOUNTER → 2023-12-26 | Outpatient (REF) | payer OTHER ==
[2023-12-26 15:27] LABS: GC DNA AMPLIFICATION NEGATIVE (NEGATIVE)
[2023-12-26 17:26] LABS: TOTAL PROTEIN,RANDOM URINE 14.5 MG/DL (0.0-14.0)
[2023-12-26 17:31] LABS: CREATININE,RANDOM URINE 77.1 MG/DL
== END ==
LOC: M SFHCWAGY 12:41
PROVIDERS: ATTEND Advanced Practice Midwife
DX: Z34.81 Encounter for supervision of other normal pregnancy, first trimester (principal)

== ENCOUNTER → 2024-02-08 | Outpatient (CLI) | payer OTHER | LOC: M WHC 08:27 | PROVIDERS: ATTEND Obstetrics & Gynecology | DX: Z34.82 Encounter for supervision of other normal pregnancy, second trimester (principal) ==

== ENCOUNTER 2024-02-26 16:55 | Outpatient (CLI) | payer OTHER ==
[~2024-02-26] VITALS: Ht 157.5 cm; Wt 85.5 kg
[2024-02-26] MEDS ORDERED: HOME MED LIST COMPLETE! XX SCH (17:10)
[2024-02-26 19:12] VITALS: BP 123/68
[2024-02-26] MEDS: RHOGAM 300MCG (1500IU) INJ IM ONE (19:16)
== END 2024-02-26 19:30 | disposition home or self-care (01) ==
LOC: M LDO 16:55
PROVIDERS: ATTEND Specialist
DX: O26.892 Other specified pregnancy related conditions, second trimester (principal); O36.0120 Maternal care for anti-D [Rh] antibodies, second trimester, not applicable or unspecified; R25.2 Cramp and spasm; W00.0XXA Fall on same level due to ice and snow, initial encounter; Y92.9 Unspecified place or not applicable; Y93.9 Activity, unspecified; Y99.9 Unspecified external cause status; Z3A.23 23 weeks gestation of pregnancy
CPT/HCPCS: 36415; 59025; 85460; 86850; 86900; 86901; 96372; G0463; J2790

== ENCOUNTER 2024-02-28 16:53 | Outpatient (CLI) | payer OTHER ==
[~2024-02-28] VITALS: Ht 157.5 cm; Wt 87.0 kg
[2024-02-28 17:13] VITALS: BP 138/81
[2024-02-28] MEDS: ACETAMINOPHEN 500 MG TAB PO ONE (17:51)
== END 2024-02-28 17:40 | disposition home or self-care (01) ==
LOC: M LDO 16:53
PROVIDERS: ATTEND Advanced Practice Midwife
DX: O26.892 Other specified pregnancy related conditions, second trimester (principal); O36.0120 Maternal care for anti-D [Rh] antibodies, second trimester, not applicable or unspecified; R10.2 Pelvic and perineal pain; Z87.59 Personal history of other complications of pregnancy, childbirth and the puerperium; Z3A.23 23 weeks gestation of pregnancy
CPT/HCPCS: 59025; G0463

== ENCOUNTER 2024-03-06 11:11 | Outpatient (RCR) | payer OTHER | END 2024-03-07 | LOC: M PT 11:11 | PROVIDERS: ATTEND Specialist | DX: O26.712 Subluxation of symphysis (pubis) in pregnancy, second trimester (principal); Z3A.00 Weeks of gestation of pregnancy not specified ==

== ENCOUNTER → 2024-03-13 | Outpatient (CLI) | payer OTHER ==
[2024-03-13 14:45] LABS: HEMATOCRIT 39.1 % (36.0-47.0); MEAN CORPUSCULAR HEMOGLOBIN 28.6 pg (27.0-33.0); MEAN CORPUSCULAR HGB CONC 33.2 g/dl (32.0-36.5); MEAN CORPUSCULAR VOLUME 85.9 fl (80.0-96.0); PLATELET COUNT, AUTOMATED 205 10^3/uL (150-450); RED BLOOD COUNT 4.55 10^6/uL (4.00-5.40); WHITE BLOOD COUNT 9.9 10^3/uL (4.0-10.0)
[2024-03-13 14:47] LABS: TOTAL PROTEIN,RANDOM URINE 14.8 MG/DL (0.0-14.0)
[2024-03-13 14:50] LABS: LDH LACTATE DEHYDROGENASE 196 U/L (120-246)
[2024-03-13 14:52] LABS: ALT/SGPT 9 U/L (7.0-40); AST/SGOT 13 U/L (<34); BILIRUBIN,TOTAL 0.3 MG/DL (0.3-1.2); CREATININE FOR GFR 0.55 MG/DL (0.55-1.30); GLOMERULAR FILTRATION RATE > 60.0 (>60)
== END ==
LOC: M PLALAB 09:00
PROVIDERS: ATTEND Obstetrics & Gynecology
DX: O14.90 Unspecified pre-eclampsia, unspecified trimester (principal)

== ENCOUNTER 2024-03-21 12:20 | Outpatient (RCR) | payer OTHER | END 2024-04-04 | LOC: M PT 12:20 | PROVIDERS: ATTEND Specialist | DX: O26.712 Subluxation of symphysis (pubis) in pregnancy, second trimester (principal); M25.559 Pain in unspecified hip; Z3A.00 Weeks of gestation of pregnancy not specified; O26.899 Other specified pregnancy related conditions, unspecified trimester ==

== ENCOUNTER → 2024-04-23 | Outpatient (CLI) | payer OTHER ==
[2024-04-23 14:28] LABS: URIC ACID 5.6 MG/DL (3.1-7.8)
[2024-04-23 14:30] LABS: LDH LACTATE DEHYDROGENASE 185 U/L (120-246)
[2024-04-23 14:31] LABS: ALT/SGPT 13 U/L (7.0-40); AST/SGOT 11 U/L (<34); BILIRUBIN,TOTAL 0.3 MG/DL (0.3-1.2); CREATININE FOR GFR 0.59 MG/DL (0.55-1.30); GLOMERULAR FILTRATION RATE > 60.0 (>60)
== END ==
LOC: M PLALAB 10:15
PROVIDERS: ATTEND Nurse Practitioner Family
DX: O09.299 Supervision of pregnancy with other poor reproductive or obstetric history, unspecified trimester (principal)

== ENCOUNTER → 2024-04-23 | Outpatient (REF) | payer OTHER ==
[2024-04-23 13:38] LABS: TOTAL PROTEIN,RANDOM URINE 13.1 MG/DL (0.0-14.0)
[2024-04-23 13:43] LABS: CREATININE,RANDOM URINE 176.3 MG/DL
[2024-04-23 14:54] LABS: GC DNA AMPLIFICATION NEGATIVE (NEGATIVE)
== END ==
LOC: M PLALAB 09:41
PROVIDERS: ATTEND Nurse Practitioner Family
DX: O09.299 Supervision of pregnancy with other poor reproductive or obstetric history, unspecified trimester (principal); Z3A.00 Weeks of gestation of pregnancy not specified

== ENCOUNTER → 2024-04-23 | Outpatient (CLI) | payer OTHER ==
[2024-04-23 13:57] LABS: HEMATOCRIT 35.4 % (36.0-47.0); HEMOGLOBIN 11.8 g/dl (12.0-15.5); MEAN CORPUSCULAR HEMOGLOBIN 27.8 pg (27.0-33.0); MEAN CORPUSCULAR HGB CONC 33.3 g/dl (32.0-36.5); MEAN CORPUSCULAR VOLUME 83.3 fl (80.0-96.0); PLATELET COUNT, AUTOMATED 217 10^3/uL (150-450); RED BLOOD COUNT 4.25 10^6/uL (4.00-5.40); WHITE BLOOD COUNT 10.3 10^3/uL (4.0-10.0)
== END ==
LOC: M PLALAB 10:14
PROVIDERS: ATTEND Specialist
DX: Z34.82 Encounter for supervision of other normal pregnancy, second trimester (principal)

== ENCOUNTER → 2024-04-29 | Outpatient (CLI) | payer OTHER ==
[2024-04-29 15:36] LABS: GLUCOSE CHALLENGE TEST 1 HOUR 155 MG/DL (LESS THAN 140)
[2024-04-29 16:07] LABS: HIV 1&2 SCREEN NEGATIVE (NEGATIVE)
[2024-04-29 16:15] LABS: HEPATITIS C VIRUS ABY INDEX 0.03 INDEX (<0.8)
== END ==
LOC: M PLALAB 08:36
PROVIDERS: ATTEND Specialist
DX: Z34.82 Encounter for supervision of other normal pregnancy, second trimester (principal)

== ENCOUNTER → 2024-05-05 | Outpatient (CLI) | payer OTHER | LOC: M LAB 07:36 | PROVIDERS: ATTEND Specialist | DX: Z34.82 Encounter for supervision of other normal pregnancy, second trimester (principal) ==

== ENCOUNTER → 2024-05-08 | Outpatient (CLI) | payer OTHER | LOC: M RAD 12:29 | PROVIDERS: ATTEND Nurse Practitioner Family | DX: O13.3 Gestational [pregnancy-induced] hypertension without significant proteinuria, third trimester (principal); Z3A.34 34 weeks gestation of pregnancy ==

== ENCOUNTER → 2024-05-20 | Outpatient (REF) | payer OTHER | LOC: M SFHCWAGY 10:08 | PROVIDERS: ATTEND Advanced Practice Midwife | DX: Z36.85 Encounter for antenatal screening for Streptococcus B (principal); Z3A.36 36 weeks gestation of pregnancy ==

== ENCOUNTER 2024-05-27 14:48 | Outpatient (CLI) | payer OTHER ==
[~2024-05-27] VITALS: Ht 160 cm; Wt 101.7 kg
[2024-05-27] VITALS (7 sets, daily range): BP systolic 127–133; BP diastolic 69–77; O2SAT 97–98
[2024-05-27] MEDS ORDERED: ACET-897 PO (15:06)
[2024-05-27] MEDS ORDERED: TUMS500C PO (15:06)
[2024-05-27] MEDS ORDERED: HOME MED LIST COMPLETE! XX SCH (15:10)
[2024-05-27 15:56] LABS: HEMATOCRIT 35.2 % (36.0-47.0); HEMOGLOBIN 11.3 g/dl (12.0-15.5); MEAN CORPUSCULAR HEMOGLOBIN 25.1 pg (27.0-33.0); MEAN CORPUSCULAR HGB CONC 32.1 g/dl (32.0-36.5); PLATELET COUNT, AUTOMATED 210 10^3/uL (150-450); RED BLOOD COUNT 4.51 10^6/uL (4.00-5.40); WHITE BLOOD COUNT 10.7 10^3/uL (4.0-10.0)
[2024-05-27 16:21] LABS: TOTAL PROTEIN,RANDOM URINE 20.3 MG/DL (0.0-14.0)
[2024-05-27 16:23] LABS: URIC ACID 6.5 MG/DL (3.1-7.8)
[2024-05-27 16:25] LABS: LDH LACTATE DEHYDROGENASE 213 U/L (120-246)
[2024-05-27 16:26] LABS: ALT/SGPT 14 U/L (7.0-40); AST/SGOT 15 U/L (<34); BILIRUBIN,TOTAL 0.3 MG/DL (0.3-1.2); CREATININE FOR GFR 0.68 MG/DL (0.55-1.30); CREATININE,RANDOM URINE 80.9 MG/DL; GLOMERULAR FILTRATION RATE > 90.0 (>60)
== END 2024-05-27 16:50 | disposition home or self-care (01) ==
LOC: M LDO 14:48
PROVIDERS: ATTEND Advanced Practice Midwife
DX: O13.3 Gestational [pregnancy-induced] hypertension without significant proteinuria, third trimester (principal); Z67.21 Type B blood, Rh negative; Z3A.36 36 weeks gestation of pregnancy
CPT/HCPCS: 59025; 82247; 82570; 83615; 84156; 84450; 84460; 84550; 85027; G0463

== ENCOUNTER 2024-05-29 13:17 | Inpatient (IN) | payer OTHER ==
[~2024-05-29] VITALS: Ht 160 cm; Wt 100.9 kg
[~2024-05-29 13:17] MED LIST changes: +ACET-897 PO
[2024-05-29 13:43] VITALS: BP 124/88
[2024-05-29] MEDS ORDERED: OXYTOCIN INJ 10UNITS/ML 1ML VIAL IM PRN (13:45)
[2024-05-29] MEDS ORDERED: OXYTOCIN DRIP 30 UNITS in IV 1 EA IV PRN (13:45)
[2024-05-29] MEDS ORDERED: CARBOPROST TROMETHAMINE 250 MCG/ML AMP IM PRN (13:45)
[2024-05-29] MEDS ORDERED: TRANEXAMIC ACID INJection 1,000 MG in NS 100 ML IV PRN (13:45)
[2024-05-29] MEDS ORDERED: LIDOCAINE 1% MDV 20ML VIAL INFIL PRN (13:45)
[2024-05-29] MEDS ORDERED: HOME MED LIST COMPLETE! XX SCH (13:50)
[2024-05-29 14:55] VITALS: BP 128/78
[2024-05-29] MEDS: miSOPROStol 50MCG 1/2 TABLET PO SCH (14:55)
[2024-05-29 15:03] LABS: HEMATOCRIT 35.1 % (36.0-47.0); HEMOGLOBIN 11.1 g/dl (12.0-15.5); MEAN CORPUSCULAR HEMOGLOBIN 25.2 pg (27.0-33.0); MEAN CORPUSCULAR HGB CONC 31.6 g/dl (32.0-36.5); MEAN CORPUSCULAR VOLUME 79.6 fl (80.0-96.0); PLATELET COUNT, AUTOMATED 207 10^3/uL (150-450); RED BLOOD COUNT 4.41 10^6/uL (4.00-5.40); WHITE BLOOD COUNT 9.4 10^3/uL (4.0-10.0)
[2024-05-29 15:28] LABS: URIC ACID 6.2 MG/DL (3.1-7.8)
[2024-05-29 15:30] LABS: LDH LACTATE DEHYDROGENASE 211 U/L (120-246)
[2024-05-29 15:31] LABS: ALT/SGPT 10 U/L (7.0-40); AST/SGOT 14 U/L (<34); BILIRUBIN,TOTAL 0.2 MG/DL (0.3-1.2); GLOMERULAR FILTRATION RATE > 90.0 (>60)
[2024-05-29 16:04] LABS: HIV 1&2 SCREEN NEGATIVE (NEGATIVE)
[2024-05-29 16:12] VITALS: BP 126/88
[2024-05-29 16:12] LABS: HEPATITIS C VIRUS ABY INDEX 0.02 INDEX (<0.8)
[2024-05-29 17:14] VITALS: BP 135/82
[2024-05-29 19:03] VITALS: BP 137/88
[2024-05-29 22:47] VITALS: BP 127/87
[2024-05-30] VITALS (32 sets, daily range): BP systolic 115–156; BP diastolic 56–92; O2SAT 98
[2024-05-30] MEDS ORDERED: OXYTOCIN DRIP 30 UNITS in IV 1 EA IV SCH (06:30)
[2024-05-30] MEDS ORDERED: diphenhydrAMINE 50MG/ML VIAL IV PRN (09:30)
[2024-05-30] MEDS ORDERED: NALOXONE INJ 0.4MG/1ML VIAL IV PRN (09:30)
[2024-05-30] MEDS ORDERED: ePHEDrine SULFATE 25 MG/5 ML(5MG/ML) SYRINGE IVP PRN (09:30)
[2024-05-30] MEDS ORDERED: EPIDURAL/PCA KEYS XX PRN (09:30)
[2024-05-30] MEDS ORDERED: ONDANSETRON 4MG 2ML VIAL IV PRN (09:30)
[2024-05-30] MEDS ORDERED: LR 500 ML IV PRN (09:30)
[2024-05-30] MEDS: FENTANYL/ROPIVACAINE/NACL BAG 100 ML EPIDURAL SCH (10:03)
[2024-05-30] MEDS ORDERED: METHYLERGONOVINE MALEATE 0.2 MG TAB PO PRN (21:25)
[2024-05-30] MEDS ORDERED: IBUPROFEN 800 MG TAB PO PRN (21:25)
[2024-05-30] MEDS ORDERED: IBUPROFEN 600MG TAB PO PRN (21:25)
[2024-05-30] MEDS ORDERED: ACETAMINOPHEN 325 MG TAB PO PRN (21:25)
[2024-05-30] MEDS ORDERED: RHOGAM 300MCG (1500IU) INJ IM SCH (21:25)
[2024-05-30] MEDS: DIBUCAINE 1% OINTMENT 30GM TOP PRN (23:09)
[2024-05-31 06:00] VITALS: BP 127/74; O2SAT 99
[2024-05-31] MEDS: ANUSOL HC CREAM 30GM TOP PRN (09:18)
[2024-05-31] MEDS: PRENATAL VITAMINS CHEWABLE TABLET PO SCH (09:18)
[2024-05-31] MEDS: DOCUSATE SODIUM 100MG CAPSULE PO PRN (09:18)
[2024-05-31] MEDS: ACETAMINOPHEN 500 MG TAB PO PRN (09:18)
[2024-05-31 18:00] VITALS: BP 132/79; O2SAT 99
[2024-06-01 05:58] VITALS: BP 134/85; O2SAT 97
[2024-06-01] MEDS ORDERED: MEASLES,MUMPS,RUBELLA VACCINE INJ (MMR-II) SC.IMMUN ONE (09:00)
== END 2024-06-01 12:50 | disposition home or self-care (01) | DRG 560 ==
LOC: M LDI 13:17 → M OBS 05-30 22:30
PROVIDERS: ADMIT Advanced Practice Midwife; ATTEND Advanced Practice Midwife
PROC: 3E033VJ Introduction of Other Hormone into Peripheral Vein, Percutaneous Approach (ICD-10-PCS; 2024-05-29)
PROC: 3E0P7GC Introduction of Other Therapeutic Substance into Female Reproductive, Via Natural or Artificial Opening (ICD-10-PCS; 2024-05-29)
PROC: 10E0XZZ Delivery of Products of Conception, External Approach (ICD-10-PCS; principal; 2024-05-30)
PROC: 0KQM0ZZ Repair Perineum Muscle, Open Approach (ICD-10-PCS; 2024-05-30)
DX: O13.4 Gestational [pregnancy-induced] hypertension without significant proteinuria, complicating childbirth (principal); Z37.0 Single live birth; Z3A.37 37 weeks gestation of pregnancy; Z91.040 Latex allergy status; O70.1 Second degree perineal laceration during delivery

== ENCOUNTER 2024-10-10 22:02 | Emergency (ER) | payer MEDICAID, OTHER ==
[~2024-10-10] VITALS: Ht 162.6 cm; Wt 79.5 kg
[2024-10-10 23:28] LABS: VENOUS BASE EXCESS -0.3 (-2.0-2.0); VENOUS HCO3 26.0 MMOL/L (23.0-27.0); VENOUS O2 SATURATION 47.2 % (60.0-80.0); VENOUS PARTIAL PRESSURE CO2 48.9 mmHg (38.0-50.0); VENOUS PARTIAL PRESSURE O2 25.9 mmHg (30.0-50.0); VENOUS PH 7.344 UNITS (7.330-7.430); VENOUS STANDARD HCO3 22.9 MMOL/L; VENOUS TOTAL CO2 27.5 MMOL/L (24.0-28.0)
[2024-10-10] MEDS: NS (Normal Saline) 0.9% 1,000 ML IV ONE (23:28)
[2024-10-10 23:31] LABS: BASO # 0.0 10^3/uL (0.0-0.2); BASO % 0.4 % (0.0-1.0); EOS # 0.1 10^3/uL (0.0-0.5); EOS % 0.7 % (0.0-3.0); LYMPH # 1.2 10^3/uL (1.5-5.0); LYMPH % 14.5 % (24.0-44.0); MONO # 0.5 10^3/uL (0.0-0.8); MONO % 5.5 % (2.0-8.0); NEUTROPHILS # 6.7 10^3/uL (1.5-8.5); NEUTROPHILS % 78.5 % (36.0-66.0); PLATELET COUNT, AUTOMATED 275 10^3/uL (150-450)
[2024-10-10 23:54] LABS: AMPHETAMINES LEVEL URINE NEGATIVE (NEGATIVE); BARBITURATES URINE NEGATIVE (NEGATIVE); BENZODIAZEPINES URINE NEGATIVE (NEGATIVE); CANNABINOIDS URINE NEGATIVE (NEGATIVE); COCAINE METABOLITE URINE NEGATIVE (NEGATIVE); METHADONE URINE NEGATIVE (NEGATIVE); OPIATES URINE NEGATIVE (NEGATIVE); PHENCYCLIDINE URINE NEGATIVE (NEGATIVE)
[2024-10-10 23:56] LABS: CK-MB VALUE MASS < 1.0 NG/ML (<3.6); ETHYL ALCOHOL (ETHANOL) < 0.003 % (0.000-0.010)
[2024-10-10 23:57] LABS: HCG, SERUM QUALITATIVE NEGATIVE (NEGATIVE)
[2024-10-10 23:58] LABS: CALCIUM LEVEL 9.5 MG/DL (8.5-10.1); CARBON DIOXIDE LEVEL 28 MMOL/L (20-31); CHLORIDE LEVEL 105 MMOL/L (98-107); CPK CREATINE PHOSPHOKINASE 69 U/L (34-145); CREATININE FOR GFR 0.79 MG/DL (0.55-1.30); GLOMERULAR FILTRATION RATE > 90.0 (>60); MAGNESIUM LEVEL 2.0 MG/DL (1.8-2.4); POTASSIUM SERUM 3.6 MMOL/L (3.5-5.1); SALICYLATE LEVEL < 3.0 MG/DL (<30); SODIUM LEVEL 143 MMOL/L (136-145)
[2024-10-11 00:01] LABS: FREE T4 1.40 NG/DL (0.89-1.76)
[2024-10-11 00:34] VITALS: TEMP 98.5; O2SAT 99
[2024-10-11 00:35] VITALS: BP 128/82
== END 2024-10-11 00:54 | disposition home or self-care (01) ==
LOC: M ED 22:02
DX: R06.4 Hyperventilation (principal); F41.0 Panic disorder [episodic paroxysmal anxiety]; I45.10 Unspecified right bundle-branch block; E03.9 Hypothyroidism, unspecified; F17.200 Nicotine dependence, unspecified, uncomplicated; Z91.040 Latex allergy status; Z79.1 Long term (current) use of non-steroidal anti-inflammatories (NSAID); Z79.899 Other long term (current) drug therapy